=== PATIENT | male | born 1935 | race Hispanic/Latino ===

== ENCOUNTER 2017-03-25 19:44 | Emergency (ER) | payer MEDICARE, BC ==
[2017-03-25 19:59] VITALS: TEMP 98.7; BMI 22.0
[2017-03-25] MEDS ORDERED: Lidocaine 1% Inj (20ml) ONE (20:07)
[2017-03-25] MEDS ORDERED: Lidocaine 1%/Epinephrine 1:100000 30 ml vial IJ ONE (20:12)
[2017-03-25] MEDS ORDERED: Lidocaine/Epi 1% 1:100000 20 ML IJ STA (20:16)
[2017-03-25] MEDS ORDERED: TDAP Vaccine 0.5 mL Syr IM ONE (20:22)
--- NOTE | 2017-03-25 21:10 | ED PDOC ---
Arrival/HPI <CHEYENNE ROD - Last Filed: 03/25/17 22:08> <Dickson Levin DO - Last Filed: 03/26/17 05:23> - General Chief Complaint: Alcohol Ingestion Time Seen by Provider: 03/25/17 19:48 - History of Present Illness Narrative History of Present Illness (Text): 03/25/17 21:07 Mr. Doshi is an 81 year old male with past medical history significant for atrial fibrillation currently taking pradaxa, alcohol abuse, HTN, CAD, AV replacement, and dyslipidemia presents to the emergency department for a fall with coinciding head trauma at 1900 this evening. Pt states that he had been consuming alcohol prior to his fall. he describes a mechanical fall in which he struck his face on a handle of a dresser. He indicated that he sustained a cut to his upper left eye along his eyebrow. He denies any loss of consciousness, neck pain, numbness, tremors, or change in vision. (CHEYENNE ROD) Past Medical History - Provider Review Nursing Documentation Reviewed: Yes - Infectious Disease Hx of Infectious Diseases: None - Tetanus Immunization Tetanus Immunization: Unknown - Cardiac Hx Cardiac Disorders: Yes Hx Atrial Fibrillation: Yes Hx Coronary Artery Disease: Yes Hx Pacemaker: Yes - Pulmonary Hx Respiratory Disorders: Yes ("unsure what breathing problem") - Neurological Hx Neurological Disorder: No - HEENT Hx HEENT Disorder: No - Renal Hx Renal Disorder: No - Endocrine/Metabolic Hx Endocrine Disorders: No (patient denies) - Hematological/Oncological Hx Blood Disorders: (patient denies) Hx Blood Transfusions: No Hx Blood Transfusion Reaction: No - Integumentary Hx Dermatological Disorder: No - Musculoskeletal/Rheumatological Hx Musculoskeletal Disorders: No (denies) - Gastrointestinal Hx Gastrointestinal Disorders: Yes (DIVERTICULITIS,GASTRITIS) Hx Diverticulitis: Yes Hx Gastritis: Yes - Genitourinary/Gynecological Hx Genitourinary Disorders: No (patient denies) - Psychiatric Hx Psychophysiologic Disorder: Yes Hx Anxiety: Yes Hx Emotional Abuse: No Hx Physical Abuse: No Hx Substance Use: No - Surgical History Hx Open Heart Surgery: Yes - Anesthesia Hx Anesthesia: No Hx Anesthesia Reactions: No Hx Malignant Hyperthermia: No - Suicidal Assessment Suicidal Thoughts: No Feels Threatened In Home Enviroment: No <CHEYENNE ROD - Last Filed: 03/25/17 22:08> Family/Social History - Physician Review Nursing Documentation Reviewed: Yes Family/Social History: No Known Family HX Smoking Status: Former Smoker Hx Alcohol Use: Yes (ETOH) Frequency of alcohol use: Few days per week Hx Substance Use: No Hx Substance Use Treatment: No <CHEYENNE ROD - Last Filed: 03/25/17 22:08> Allergies/Home Meds <CHEYENNE ROD - Last Filed: 03/25/17 22:08> <Dickson Levin DO - Last Filed: 03/26/17 05:23> Allergies/Adverse Reactions: Allergies pcn Allergy (Uncoded 07/11/16 14:15) RASH Home Medications: Home Meds Medication Instructions Recorded Confirmed Dabigatran [Pradaxa] 150 mg PO BID 08/06/15 08/06/15 Review of Systems - Review of Systems Constitutional: absent: Fatigue, Weight Change, Fevers Eyes: absent: Vision Changes Respiratory: absent: SOB, Cough, Wheezing Cardiovascular: absent: Chest Pain, Palpitations, Edema Gastrointestinal: absent: Abdominal Pain, Constipation, Diarrhea Musculoskeletal: absent: Back Pain, Neck Pain Skin: Laceration (Left eye brow ) Neurological: absent: Gait Changes, Speech Changes Psychiatric: absent: Depression, Suicidal Ideation <CHEYENNE ROD - Last Filed: 03/25/17 22:08> Physical Exam - Physical Exam Physical Exam Limitations: Intoxication Vital Signs Reviewed: Yes Temperature: Afebrile Blood Pressure: Hypertensive Pulse: Regular Respiratory Rate: Normal Appearance: Positive for: Well-Appearing Pain Distress: Mild Mental Status: Positive for: Alert and Oriented X 3 - Systems Exam Head: Present: Normocephalic, Laceration (Left eye brow laceration in Y pattern measuring 3 cm horizontally and 1 cm vertical ) Pupils: Present: PERRL Extroacular Muscles: Present: EOMI Conjunctiva: Present: Normal Neck: Present: Normal Range of Motion Respiratory/Chest: Present: Clear to Auscultation, Good Air Exchange. No: Respiratory Distress Cardiovascular: Present: Regular Rate and Rhythm, Normal S1, S2 Abdomen: Present: Normal Bowel Sounds. No: Tenderness, Peritoneal Signs Upper Extremity: Present: Normal Inspection. No: Cyanosis, Edema Lower Extremity: Present: Normal Inspection. No: Edema Neurological: Present: GCS=15, CN II-XII Intact, Speech Normal Skin: Present: Laceration (left eyebrow ) Psychiatric: Present: Alert, Oriented x 3, Normal Insight <CHEYENNE ROD - Last Filed: 03/25/17 22:08> Medical Decision Making <CHEYENNE ROD - Last Filed: 03/25/17 22:08> <Dickson Levin DO - Last Filed: 03/26/17 05:23> ED Course and Treatment: 03/25/17 21:22 Impression: Mr. Doshi is an 81 year old male who present complaining of traumatic fall resulting in left eye brow laceration. Diff Dx list but not limited to - Mechanical fall - Alcohol intoxication - Atrial Fibrillation Plan: - Suture Left eyebrow laceration - Tetanus vaccine - CT scan of head without contrast - CT scan without contrast of orbital and facial bones (CHEYENNE ROD) Addendum created by Ana Swanson MD on 03/25/2017 9:49 PM Eastern Time ([place] & [place]) CT Head Without Intravenous Contrast IMPRESSION: No CT evidence of acute intracranial abnormality. Chronic changes as above. Correlate with findings from report for CT facial bones. Initial Report created on 03/25/2017 9:47 PM Eastern Time ([place] & [place]) CT Head Without Intravenous Contrast IMPRESSION: No CT evidence of acute intracranial abnormality. Chronic changes as above. Correlate with findings from report for CT facial bones. Dictated and Authenticated by: Ana Swanson MD 03/25/2017 9:47 PM Eastern Time ([place] & [place]) CT Maxillofacial Without Intravenous Contrast IMPRESSION: Negative for acute fracture. Please see details/findings as above. Dictated and Authenticated by: Ana Swanson MD 03/25/2017 9:52 PM Eastern Time ([place] & [place]) PROCEDURE: LACERATION REPAIR Performed by the emergency provider Location: Left eyebrow Length: 3 cm x 1 cm Description: clean wound edges, no foreign bodies Distal CMS: Normal. No deficits. Neurovascularly intact. Anesthesia: Lidocaine 1% Preparation: The wound was cleaned with NS and Betadyne. The area was prepped and draped in the usual sterile fashion. Exploration: The wound was explored and no foreign bodies were found. Procedure: The wound was closed with 6.0 nylon. There was good. approximation. In total, 8 stitches were used. Post-Procedure: Good closure and hemostasis. The patient tolerated the procedure well and there were no complications. CSM remains intact. Post procedure dressing applied. Patient Seen With Resident: In agreement with resident note which contains more details about the patient. Patient was seen and evaluated with resident. Came up with plan and treatment together. An 89 year old male s/p mechanical fall with head trauma and laceration to left eyebrow. Additional HPI as noted by resident. On physical exam, patient has left eyebrow laceration in Y pattern about 3 cm horizontally and [address] head and CT orbits/facials. Will give patient Boostrix and Lidocaine/Epinephrine. (Dickson Levin DO) - RAD Interpretation Radiology Orders: 03/25/17 20:22 HEAD W/O CONTRAST [CT] Stat ORBITS/ FACIALS W/O CONTRAST [CT] Stat - Medication Orders Current Medication Orders: Discontinued Medications Lidocaine HCl (Lidocaine 1% (20ml)) Confirm Administered Dose 20 ml .ROUTE .STK- MED ONE Stop: 03/25/17 20:08 Lidocaine/Epinephrine (Lidocaine 1%/Epinephrine 1:258924 30 Ml) 30 ml IJ ONCE ONE Stop: 03/25/17 20:13 Last Admin: 03/25/17 21:24 Dose: Lidocaine/Epinephrine (Lidocaine/Epi 1% 1:313008 20 Ml) 10 ml IJ STAT STA Stop: 03/25/17 20:17 Last Admin: 03/25/17 21:24 Dose: Tetanus/Reduced Diphtheria/Acell Pertussis (Boostrix Vaccine Inj) 0.5 ml IM .ONCE ONE Stop: 03/25/17 20:23 Last Admin: 03/25/17 21:23 Dose: 0.5 ml - PA / PREFORM PLATE [employer]KER / Resident Statement HERRERA has reviewed & agrees with the documentation as recorded. / has examined the patient and agrees with the treatment plan. <CHEYENNE ROD - Last Filed: 03/25/17 22:08> - Scribe Statement The provider has reviewed the documentation as recorded by the Scribe <Dickson Levin DO - Last Filed: 03/26/17 05:23> - Scribe Statement Franck Hussein Provider Scribe Attestation: All medical record entries made by the Scribe were at my direction and personally dictated by me. I have reviewed the chart and agree that the record accurately reflects my personal performance of the history, physical exam, medical decision making, and the department course for this patient. I have also personally directed, reviewed, and agree with the discharge instructions and disposition. (Dickson Levin DO) Disposition/Present on Arrival - Present on Arrival Any Indicators Present on Arrival: No History of DVT/PE: No History of Uncontrolled Diabetes: No Urinary Catheter: No History of Decub. Ulcer: No History Surgical Site Infection Following: None - Disposition Have Diagnosis and Disposition been Completed?: Yes Disposition Time: 21:50 <CHEYENNE ROD - Last Filed: 03/25/17 22:08> - Disposition Disposition Time: 21:30 <Dickson Levin DO - Last Filed: 03/26/17 05:23> - Disposition Diagnosis: Facial laceration, Alcohol abuse Disposition: HOME/ ROUTINE Condition: IMPROVED Discharge Instructions (ExitCare): Care For Your Stitches (ED), Stitches Removal (ED), Head Injury (ED) Additional Instructions: Thank you for letting us take care of you today. Your provider was Dr. Levin. You were treated for facial laceration. The emergency medical care you received today was directed at your acute symptoms. If you were prescribed any medication, please fill it and take as directed. It may take several days for your symptoms to resolve. Return to the Emergency Department if your symptoms worsen, do not improve, or if you have any other problems. Please contact your doctor or call one of the physicians/clinics you have been referred to that are listed on the Patient Visit Information form that is included in your discharge packet. Bring any paperwork you were given at discharge with you along with any medications you are taking to your follow up visit. Our treatment cannot replace ongoing medical care by a primary care provider (PCP) outside of the emergency department. Thank you for allowing the [facility] team to be part of your care today. Return to the emergency room immediately if you have dizziness, vomiting, severe headache, or any other concerns. Follow up with your doctor in 5 days for suture removal. Referrals: Bloxy Ray Castellon, [Non-Staff] - Follow up with primary
--- NOTE | 2017-03-25 21:48 | CT ---
EXAM: CT Head Without Intravenous Contrast CLINICAL HISTORY: 81 years old, male; Injury or trauma; Fall; Initial encounter; Abrasion; Head, generalized; Additional info: R/O ich and FX TECHNIQUE: Axial computed tomography images of the head/brain without intravenous contrast. This CT exam was performed using one or more of the following dose reduction techniques: automated exposure control, adjustment of the mA and/or kV according to patient size, and/or use of iterative reconstruction technique. COMPARISON: CT - HEAD W/O CONTRAST 07/11/2016 2:47:18 PM FINDINGS: Brain: Extensive bilateral white matter changes. This is nonspecific and may include microangiopathic disease, small lacunae of indeterminate chronicity, chronic infarcts and/or encephalomalacia. Evidence of bilateral lacunae. Atrophy. Atherosclerotic calcification of internal carotid arteries. No hemorrhage. No edema. Ventricles: Prominence of ventricular system secondary to atrophy. No hydrocephalus. Bones: Skull is intact. Again noted is small exophytic sclerotic focus emanating from outer table of right frontal calvarium. Sinuses: No acute sinusitis. Mastoid air cells: No mastoid effusion. IMPRESSION: No CT evidence of acute intracranial abnormality. Chronic changes as above. Correlate with findings from report for CT facial bones.
--- NOTE | 2017-03-25 21:53 | CT ---
EXAM: CT Maxillofacial Without Intravenous Contrast CLINICAL HISTORY: 81 years old, male; Injury or trauma; Fall; Initial encounter; Abrasion; Orbit/periorbital; Right; Additional info: R/O FX TECHNIQUE: Axial computed tomography images of the face without intravenous contrast. This CT exam was performed using one or more of the following dose reduction techniques: automated exposure control, adjustment of the mA and/or kV according to patient size, and/or use of iterative reconstruction technique. Coronal and sagittal reformatted images were created and reviewed. COMPARISON: CT - HEAD W/O CONTRAST 07/11/2016 2:47:18 PM FINDINGS: Bones: No acute fracture. Degenerative changes in the cervical spine. Soft tissues: No significant abnormality on CT. Correlate clinically. Orbits: Unremarkable as visualized. Sinuses: Mild paranasal sinus mucosal thickening. No air-fluid levels. Dental disease including periapical lucency of a right mandibular tooth. IMPRESSION: Negative for acute fracture. Please see details/findings as above.
[2017-03-25 22:33] VITALS: BP 135/89; PULSE 62; RESP 16; O2SAT 97
== END 2017-03-25 22:36 | disposition home or self-care (01) ==
LOC: ED 19:44
DX: S01.112A Laceration without foreign body of left eyelid and periocular area, initial encounter (principal); W01.190A Fall on same level from slipping, tripping and stumbling with subsequent striking against furniture, initial encounter; Y93.89 Activity, other specified; Y92.008 Other place in unspecified non-institutional (private) residence as the place of occurrence of the external cause; F10.10 Alcohol abuse, uncomplicated; Z23 Encounter for immunization

== ENCOUNTER 2017-11-16 06:57 | Day surgery (SDC) | payer MEDICARE, BC ==
[2017-11-09 13:46] VITALS: BMI 21.2
[2017-11-16] MEDS ORDERED: Propofol 10 mg/ml Inj (20 ML) ONE (08:46)
[2017-11-16] MEDS ORDERED: Sodium Chloride 0.9% 1,000 ML IV SCH (09:15)
[2017-11-16 16:21] VITALS: BP 147/72; PULSE 61; RESP 18; TEMP 98.1; O2SAT 98
== END 2017-11-16 16:19 | disposition home or self-care (01) ==
LOC: ENDO 06:57
PROVIDERS: ATTEND Specialist
DX: K22.70 Barrett's esophagus without dysplasia (principal); K44.9 Diaphragmatic hernia without obstruction or gangrene; I25.10 Atherosclerotic heart disease of native coronary artery without angina pectoris; I48.91 Unspecified atrial fibrillation; I10 Essential (primary) hypertension; D64.9 Anemia, unspecified
CPT/HCPCS: 43239; 88305; 88312; J2704; J7040

== ENCOUNTER 2018-10-31 17:10 | Outpatient (CLI) | payer MEDICARE, BC | END 2018-10-31 17:11 | disposition home or self-care (01) | LOC: CARDIO 17:10 | DX: Z45.010 Encounter for checking and testing of cardiac pacemaker pulse generator [battery] (principal) ==

== ENCOUNTER 2019-01-30 15:19 | Outpatient (CLI) | payer MEDICARE, BC | END 2019-01-30 15:20 | disposition home or self-care (01) | LOC: CARDIO 15:19 ==